=== PATIENT | female | born 1990 | race Asian ===

== ENCOUNTER 2020-08-17 18:32 | Emergency (ER) | payer BC ==
[2020-08-17 18:43] VITALS: BP 129/79; PULSE 94; TEMP 98.2; BMI 36.6
--- NOTE | 2020-08-17 19:37 | PDOC ---
History of Present Illness - General Chief Complaint: Headache Stated Complaint: BOX OF BOOKS FELL ON HEAD/HEADACHES History Source: Patient - History of Present Illness Initial Comments: 08/17/20 19:30 Patient is a 30-year-old female with ASD repaired at age 21, complaining of headache since about 3:30 PM. Patient states about 10:30 AM she was at work and a box of books fell on her head, no loss of consciousness. Initially she had no pain but by late afternoon she developed a headache which was frontal progressively worsened now 8/10 pressure-like. States she has no associated nausea, vomiting, dizziness but she feels very tired and foggy in her brain. Patient requesting call with testing as well. LMP: now PMD: Dr. Cid PMHX: as above PSOCHX: neg etoh, drug, cig ALL: NKDA GENERAL/CONSTITUTIONAL: [No fever or chills. No weakness. No weight change.] HEAD, EYES, EARS, NOSE AND THROAT: [No change in vision. No ear pain or discharge. No sore throat.] CARDIOVASCULAR: [No chest pain or shortness of breath.] RESPIRATORY: [No cough, wheezing, or hemoptysis.] GASTROINTESTINAL: [No nausea, vomiting, diarrhea or constipation. No rectal bleeding.] GENITOURINARY: [No dysuria, frequency, or change in urination.] MUSCULOSKELETAL: [No joint or muscle swelling or pain. No neck or back pain.] SKIN AND BREASTS: [No rash or easy bruising.] NEUROLOGIC: [(+) headache, vertigo, (-) loss of consciousness, or loss of s ensation.] PSYCHIATRIC: [No depression or anxiety.] ENDOCRINE: [No increased thirst. No abnormal weight change.] HEMATOLOGIC/LYMPHATIC: [No anemia, easy bleeding, or history of blood clots.] ALLERGIC/IMMUNOLOGIC: [No hives or skin allergy. No latex allergy.] GENERAL: [The patient is awake, alert, and fully oriented, in no acute distress.] HEAD: [Normal with no signs of trauma.] EYES: [Pupils equal, round and reactive to light, extraocular movements intact, sclera anicteric, conjunctiva clear.] ENT: [Ears normal, nares patent, oropharynx clear without exudates. Moist mucous membranes.] NECK: [Normal range of motion, supple without lymphadenopathy, JVD, or masses.] LUNGS: [Breath sounds equal, clear to auscultation bilaterally. No wheezes, and no crackles.] HEART: [Regular rate and rhythm, normal S1 and S2 without murmur, rub.] ABDOMEN: [Soft, nontender, normoactive bowel sounds. No guarding, no rebound. No masses.] EXTREMITIES: [Normal range of motion, no edema. No clubbing or cyanosis. No cords, erythema, or tenderness.] NEUROLOGICAL: [Cranial nerves II through XII grossly intact. Normal speech, cerebellar function intactnormal [id number], normal [id number], normal g ait.] PSYCH: [Normal mood, normal affect.] SKIN: [Warm, Dry, normal turgor, no rashes or lesions noted.] Past History - Medical History COPD: No - Reproductive History Is Patient Now?: No - Immunization History Immunization Up to Date: No - Psycho-Social/Smoking History Smoking History: Never smoked Have you smoked in the past 12 months: No Information on smoking cessation initiated: No - Substance Abuse Hx (Audit-C & DAST Scrn) How often the patient has a drink containing alcohol: Never Score: In Men: 4 or > Positive; In Women: 3 or > Positive: 0 Screen Result (Pos requires Nsg. Audit-10AR): Negative In the last yr the pt used illegal drug/Rx for NonMed reason: No Score: Yes response is considered Positive: 0 Screen Result (Positive result requires Nsg. DAST-10): Negative *Physical Exam - Vital Signs Last Vital Signs Temp Pulse Resp BP Pulse Ox 98.2 F 94 H 18 129/79 99 08/17/20 18:40 08/17/20 18:40 08/17/20 18:40 08/17/20 18:40 08/17/20 18:40 ED Treatment Course - RADIOLOGY Radiology Studies Ordered: Category Date Time Status HEAD CT WITHOUT CONTRAST [CT] Stat CT Scan 08/17/20 19:10 Ordered Medical Decision Making - Medical Decision Making 08/17/20 19:30 Patient is a 30-year-old female with ASD repaired at age 21, complaining of headache since about 3:30 PM. Patient states about 10:30 AM she was at work and a box of books fell on her head, no loss of consciousness. Initially she had no pain but by late afternoon she developed a headache which was frontal progressively worsened now 8/10 pressure-like. States she has no associated nausea, vomiting, dizziness but she feels very tired and foggy in her brain. LMP: now. Patient with concussion symptoms however since patient has persistent headache will get a CT scan of the head. Reassess Discharge - Discharge Information Problems reviewed: Yes Clinical Impression/Diagnosis: Post-concussion headache Closed head injury Qualifiers: Encounter type: initial encounter Qualified Code(s): S09.90XA - Unspecified injury of head, initial encounter Condition: Stable Disposition: HOME - Follow up/Referral Referrals: Nova Cid MD [Primary Care Provider] - Roe Lin MD [Staff Physician] - - Patient Discharge Instructions Patient Printed Discharge Instructions: DI for Closed Head Injury, DI for Postconcussion Syndrome Additional Instructions: Your Discharge Instructions: You must call primary care physician within 24 hours to arrange follow-up. Re turn to the Emergency Department with any new, persistent or worsening symptoms, for fever, chills, SOB, dizziness or any other concerning changes that may occur. Follow-up with a neurologist in 1 to 2 days. Call for an appointment. - Post Discharge Activity Work/Back to School Note: Back to Work
== END 2020-08-17 20:39 | disposition home or self-care (01) ==
LOC: JERFT 18:32
DX: G44.309 Post-traumatic headache, unspecified, not intractable (principal); S09.90XA Unspecified injury of head, initial encounter
CPT/HCPCS: 70450-TC; 99284-25; U0003